=== PATIENT | male | born 1975 | race Caucasian/White ===

== ENCOUNTER 2016-11-24 18:50 | Emergency (ER) | payer MEDICARE, MEDICAID ==
[2016-11-24 18:50] VITALS: BMI 24.5
[2016-11-24 19:27] VITALS: BP 127/69; PULSE 96; RESP 16; TEMP 98; O2SAT 100
[2016-11-24] MEDS ORDERED: Oxycodone/Acetaminophen 5/325 mg Tab PO STA (19:43)
--- NOTE | 2016-11-24 19:43 | C.PDOC ---
History Of Present Illness 41 yo male come in for evaluation of left knee pain and swelling gradually developed for past week. Pt admits, had Left knee surgery 2 yrs ago "had major knee damage and ACL tear". Pt admits, " walk a lot daily". Otherwise, pt denies fever, chills, known trauma or injury, denies deformity, sensory or vascular deficits to Left LEs Ambulate to ED, appears in pain. Time Seen by Provider: 11/24/16 19:32 Chief Complaint (Nursing): Lower Extremity Problem/Injury History Per: Patient Past Medical History Reviewed: Historical Data, Nursing Documentation, Vital Signs Vital Signs: Last Vital Signs Temp 98 F 11/24/16 19:15 Pulse 96 H 11/24/16 19:15 Resp 16 11/24/16 19:15 BP 127/69 11/24/16 19:15 Pulse Ox 100 11/24/16 19:43 - Medical History PMH: Anxiety, Asthma, Back Problems, Cardia Arrhythmia ("SKIPPED BEATS AND SOMETIMES FAST"), Depression Denies: HIV, Chronic Kidney Disease Other Surgeries: Left knee orthoscopic surgery - [facility] Procedures OTHER REPAIR OF KNEE (09/25/14) OTHER SKIN & SUBQ I D (04/18/14) VACCINATION NEC (09/30/14) Family History: States: Unknown Family Hx - Social History Hx Tobacco Use: Yes Hx Alcohol Use: No Hx Substance Use: No - Immunization History Hx Tetanus Toxoid Vaccination: No Hx Influenza Vaccination: No Hx Pneumococcal Vaccination: No Review Of Systems Except As Marked, All Systems Reviewed And Found Negative. Constitutional: Negative for: Fever, Chills ENT: Negative for: Throat Pain, Throat Swelling Gastrointestinal: Negative for: Nausea, Vomiting, Abdominal Pain Musculoskeletal: Positive for: Other (Left knee pain) Skin: Negative for: Rash, Bruising Neurological: Negative for: Weakness, Numbness Physical Exam - Physical Exam Appears: Well, Non-toxic, No Acute Distress Skin: Normal Color, Warm, No Rash Throat: No Erythema Back: No CVA Tenderness Extremity: Normal ROM (B/L LEs.), Tenderness (Left knee moderate edema, tenderness over lateral superior aspect with wamth to touch. No erythema, no flactulance.), No Pedal Edema, No Calf Tenderness (B/L), Capillary Refill (less than 2sec to left foot), No Deformity Neurological/Psych: Oriented x3, Normal Speech, Normal Motor, Normal Sensation, Normal Reflexes ED Course And Treatment O2 Sat by Pulse Oximetry: 100 Pulse Ox Interpretation: Normal Progress Note: On re-evaluation, pt is afebrile, hemodynamicaly stable. Non- toxic. Ambulatory in ED with stable gait. Left knee: mod edema, warth and tenderness lateral superior aspect r/o acute arthralgia/arthritis. NO defomrity , no erythema, no evidence of cellulitis or septic knee. No neurovascular deficits. Xray review (+) mild DJD. Ortega wrap, analgesics. results review and discussed wiht pt. Pt advised to F/U with Ortho in 2-3 days for re-eval. return to ED if any worsening or new changes. Disposition Counseled Patient/Family Regarding: Studies Performed, Diagnosis, Need For Followup, Rx Given - Disposition Referrals: Jamaal Dutta MD [Staff Provider] - [facility] [Outside] Disposition: HOME/ ROUTINE Disposition Time: 20:32 Condition: STABLE Additional Instructions: Ortega wrap to knee keep leg elevated for 2-3 days Apply ice to knee Take medication as prescribed Follow up with Orthopedist in 2-3 days for re-evaluation. Return to ED if any worsening or new changes. Prescriptions: oxyCODONE/Acetaminophen [Percocet 5/325 mg Tab] 1 tab PO TID #7 tab Prednisone [Deltasone] 60 mg PO DAILY #9 tablet Instructions: Knee Pain (ED), Arthralgia (ED) Forms: [facility] (Latvian) - Clinical Impression Clinical Impression: Knee pain, Arthritis
[2016-11-24] MEDS ORDERED: Oxycodone/Acetaminophen 5/325 mg Tab ONE (19:46)
--- NOTE | 2016-11-25 10:24 | RAD ---
PROCEDURE: Left Knee Radiographs. HISTORY: Pain. COMPARISON: 11/19/2014 FINDINGS: BONES: Bone alignment and mineralization are normal. There is no acute fracture or bone destruction. There is an osteochondral lesion in the subarticular lateral femoral condyle. JOINTS: There is mild tricompartmental degenerative osteoarthrosis with mild reduced joint spaces, marginal spurring and tibial spiking, worse in the medial compartment. JOINT EFFUSION: There is a small suprapatellar joint effusion. OTHER FINDINGS: None. IMPRESSION: Small osteochondral lesion in the subarticular lateral femoral condyle. Tech Mild tricompartmental degenerative osteoarthrosis, worse in the medial compartment. Small suprapatellar joint effusion.
== END 2016-11-24 21:17 | disposition home or self-care (01) ==
LOC: C.ER 18:50
DX: M25.562 Pain in left knee (principal); M17.9 Osteoarthritis of knee, unspecified
CPT/HCPCS: 73562; 96372; 99285; J2930

== ENCOUNTER 2018-09-25 12:07 | Outpatient (CLI) | payer MEDICARE, MEDICAID | END 2018-09-25 12:08 | disposition home or self-care (01) | LOC: C.RADIC 12:07 ==